=== PATIENT | male | born 1990 | race Caucasian/White ===

== ENCOUNTER → 2016-07-16 | Outpatient (CLI) | payer OTHER | END | disposition home or self-care (01) | LOC: C.RDSM 09:24 | PROVIDERS: ATTEND Physical Medicine & Rehabilitation | DX: S16.1XXA Strain of muscle, fascia and tendon at neck level, initial encounter (principal); X58.XXXA Exposure to other specified factors, initial encounter ==

== ENCOUNTER 2016-08-04 17:52 | Emergency (ER) | payer OTHER ==
[~2016-08-04] VITALS: Ht 177.8 cm; Wt 82.6 kg
[2016-08-04 17:57] VITALS: TEMP 36.4; Ht 177.8 cm; Wt 82.6 kg
[2016-08-04] MEDS ORDERED: SODIUM CHLORIDE 0.9% 1000ML 1,000 ML IV STA (18:06)
[2016-08-04] MEDS ORDERED: HYDROmorphone INJ 1 MG/ML SYR IV STA (18:06)
--- NOTE | 2016-08-04 18:06 | EMERGENCY ROOM VISIT NOTE ---
History Report prepared by Scarlet: Omari Alfred Under the Supervision of: Dr. Shady Dumont M.D. First contact with patient: 17:55 Chief Complaint: RIB PAIN Stated Complaint: RIB PAIN, CANT BREATHE History of Present Illness The patient is a 25 year old male who presents to the Emergency Room with complaints of persistent rib pain that started prior to arrival. The patient was playing lacrosse when he got hit with a stick on the left side. The patient complains of discomfort and trouble breathing. Source of History: patient Onset: prior to arrival Position: other (left rib) Timing: other (persistent) Associated Symptoms: + SOB (difficulty breathing) Review of Systems See HPI for pertinent positives & negatives. A total of 10 systems reviewed and were otherwise negative. Past Medical & Surgical Medical Problems: (1) No pertinent past medical history Family History Patient reports no known family medical history. Social History Smoking Status: Never Smoker Housing Status: lives with roommate Occupation Status: student Physical Exam Vital Signs Date Time Temp Pulse Resp B/P Pulse Ox O2 Delivery O2 Flow Rate FiO2 08/04/16 19:35 54 18 116/56 98 08/04/16 17:57 36.4 59 16 112/79 100 Room Air Physical Exam GENERAL: Patient is moderate distress and uncomfortable appearing. HEENT: No acute trauma, normocephalic atraumatic, mucous membranes moist, no nasal congestion, no scleral icterus. NECK: No stridor, no adenopathy, no meningismus, trachea is midline. LUNGS: No dyspnea. Clear to auscultation and equal bilaterally. No wheeze, no rhonchi. HEART: Regular rate and rhythm. No murmurs, rubs, gallops appreciated. ABDOMEN: Soft, significant LUQ ttp over left lower ribs, bowel sounds positive, no masses appreciated, no peritonitis. BACK: No midline tenderness, no CVA tenderness EXTREMITIES: Normal motion all extremities, no cyanosis, no edema. NEUROLOGIC: Alert and oriented, no acute motor or sensory deficits, no focal weakness, cranial nerves grossly intact. SKIN: No rash, no jaundice, no diaphoresis. Medical Decision & Procedures ER Provider Diagnostic Interpretation: X ray results and stated below per my interpretation and radiologist interpretation. Other radiology results and stated below per my review and radiologist interpretation: CHEST ONE VIEW PORTABLE HISTORY: left chest trauma COMPARISON: None. FINDINGS: The lungs are clear. Cardiac silhouette is normal in size. No pleural effusions. No pneumothorax. IMPRESSION: No acute process. Electronically signed by: Darrin Blanchard M.D. 08/04/2016 6:22 PM Dictated Date/Time: 08/04/2016 6:21 PM ABDOMEN AND PELVIS CT WITH IV CONTRAST CT DOSE: 313.80 mGy.cm HISTORY: Left upper abdominal trauma with pain. TECHNIQUE: Multiaxial CT images of the abdomen and pelvis were performed following the use of intravenous contrast. COMPARISON STUDY: None. FINDINGS: The lung bases are clear. The liver, spleen, gallbladder, pancreas, kidneys, and adrenal glands are within normal limits. No bowel wall thickening or obstruction. Normal bladder. No fractures within the venous sinus osseous structures. IMPRESSION: No significant abnormality identified within the abdomen or pelvis. Electronically signed by: Darrin Blanchard M.D. 08/04/2016 6:52 PM Dictated Date/Time: 08/04/2016 6:46 PM Laboratory Results 08/04/16 18:10 Red Blood Count 4.95, Mean Corpuscular Volume 87.1, Mean Corpuscular Hemoglobin 29.7, Mean Corpuscular Hemoglobin Concent 34.1, Mean Platelet Volume 9.3, Neutrophils (%) (Auto) 72.1, Lymphocytes (%) (Auto) 21.1, Monocytes (%) (Auto) 5.0, Eosinophils (%) (Auto) 1.4, Basophils (%) (Auto) 0.2, Neutrophils # (Auto) 9.03, Lymphocytes # (Auto) 2.64, Monocytes # (Auto) 0.62, Eosinophils # (Auto) 0.17, Basophils # (Auto) 0.02 08/04/16 18:10 Test 08/04/16 18:10 08/04/16 18:14 White Blood Count 12.51 K/uL (4.8-10.8) Red Blood Count 4.95 M/uL (4.7-6.1) Hemoglobin 14.7 g/dL (14.0-18.0) Hematocrit 43.1 % (42-52) Mean Corpuscular Volume 87.1 fL (80-100) Mean Corpuscular Hemoglobin 29.7 pg (25-34) Mean Corpuscular Hemoglobin Concent 34.1 g/dl (32-36) Platelet Count 315 K/uL (130-400) Mean Platelet Volume 9.3 fL (7.4-10.4) Neutrophils (%) (Auto) 72.1 % Lymphocytes (%) (Auto) 21.1 % Monocytes (%) (Auto) 5.0 % Eosinophils (%) (Auto) 1.4 % Basophils (%) (Auto) 0.2 % Neutrophils # (Auto) 9.03 K/uL (1.4-6.5) Lymphocytes # (Auto) 2.64 K/uL (1.2-3.4) Monocytes # (Auto) 0.62 K/uL (0.11-0.59) Eosinophils # (Auto) 0.17 K/uL (0-0.5) Basophils # (Auto) 0.02 K/uL (0-0.2) RDW Standard Deviation 37.1 fL (36.4-46.3) RDW Coefficient of Variation 11.7 % (11.5-14.5) Immature Granulocyte % (Auto) 0.2 % Immature Granulocyte # (Auto) 0.03 K/uL (0.00-0.02) Anion Gap 9.0 mmol/L (3-11) Est Creatinine Clear Calc Drug Dose 107.8 ml/min Estimated GFR () 109.1 Estimated GFR (Non- 94.1 BUN/Creatinine Ratio 22.1 (10-20) Calcium Level 9.0 mg/dl (8.5-10.1) Total Bilirubin 0.5 mg/dl (0.2-1) Aspartate Amino Transf (AST/SGOT) 26 U/L (15-37) Alanine Aminotransferase (ALT/SGPT) 28 U/L (12-78) Alkaline Phosphatase 103 U/L (45-117) Total Protein 7.5 gm/dl (6.4-8.2) Albumin 4.4 gm/dl (3.4-5.0) Globulin 3.1 gm/dl (2.5-4.0) Albumin/Globulin Ratio 1.4 (0.9-2) Lipase 134 U/L (73-393) Urine Color YELLOW Urine Appearance CLEAR (CLEAR) Urine pH 5.0 (4.5-7.5) Urine Specific [place] 1.011 (1.000-1.030) Urine Protein NEG (NEG) Urine Glucose (UA) NEG (NEG) Urine Ketones NEG (NEG) Urine Occult Blood NEG (NEG) Urine Nitrite NEG (NEG) Urine Bilirubin NEG (NEG) Urine Urobilinogen NEG (NEG) Urine Leukocyte Esterase NEG (NEG) Urine WBC (Auto) 0 /hpf (0-5) Urine RBC (Auto) 0-4 /hpf (0-4) Urine Hyaline Casts (Auto) 0 /lpf (0-5) Urine Epithelial Cells (Auto) 0-5 /lpf (0-5) Urine Bacteria (Auto) NEG (NEG) Laboratory results as reviewed by me. Medications Administered Medications (Trade) Dose Ordered Sig/Sisi Route Start Time Stop Time Status Last Admin Dose Admin Sodium Chloride (Nss 1000ml) 1,000 ml @ 999 mls/hr Q1H1M STAT IV 08/04/16 18:06 08/04/16 19:06 DC 08/04/16 18:19 999 MLS/HR Hydromorphone HCl (Dilaudid Inj) 1 mg NOW STAT IV 08/04/16 18:06 08/04/16 18:07 DC 08/04/16 18:18 1 MG Oxycodone HCl (Roxicodone Immediate Rel 5MG Home Pack) 1 homepack UD ONCE PO 08/04/16 19:15 08/04/16 19:16 DC 08/04/16 19:31 1 HOMEPACK ED Course 1801: The patient was evaluated in room C2. A complete history and physical exam was performed. 1803: At this time, bedside ultrasound was negative for free fluid in the abdomen. the lung exam was normal. 1806: Ordered Dilaudid Inj 1 mg IV, NSS 1000 ml @ 999 mls/hr IV. 1823: At this time, I reevaluated the patient and he is feeling better. He is getting prepped to go over to CAT scan. 183: Ordered Ioversol 125 ml IV/ interaction checking. 1914: Ordered Oxycodone HCl 1 homepack PO. 0: Reevaluated the patient. Discussed results and discharge instructions: He verbalized understanding and agreement. The patient is ready for discharge. Medical Decision Differential diagnoses include intraabdominal laceration, rib fracture, pneumothorax, or rib contusion. 25yr old male sent over by team physician for evaluation of injury to LUQ. TTP over ribs and quite uncomfortable. Bedside FAST without bleed and US lungs look OK. CXR without pneumo. Sent to CT given severity of pain and fortunately without any evidence of trauma. Labs look ok. No blood in urine. Given fluids and pain meds with improvement. Discussed return to play and need to be evaluated by team physician prior to return though currently without evidence of fracture. Post rib contusion instructions reviewed with patient. Discussed restrictions on oxy ir. Impression Primary Impression: Contusion of rib on left side Scribe Attestation The scribe's documentation has been prepared under my direction and personally reviewed by me in its entirety. I confirm that the note above accurately reflects all work, treatment, procedures, and medical decision making performed by me. Departure Information Dispostion Home / Self-Care Referrals No Doctor, Assigned (PCP) Forms HOME CARE DOCUMENTATION FORM, IMPORTANT VISIT INFORMATION, WORK / SCHOOL INSTRUCTIONS Patient Instructions ED Contusion Rib, [facility] Additional Instructions You have received a narcotic pain medication. These medications may cause drowsiness and should not be used with other sedative medications. Do not drive , drink alcohol, perform dangerous activities, nor make important decisions after taking these medications. skilled nursing use or inappropriate use may lead to addiction. Problem Qualifiers Primary Impression: Contusion of rib on left side Encounter type: initial encounter Qualified Codes: S20.212A - Contusion of left front wall of thorax, initial encounter
[2016-08-04 18:19] LABS: BASO % 0.2 %; BASO ABS # 0.02 K/uL (0-0.2); COMPLETE YES; EOS % 1.4 %; HEMATOCRIT 43.1 % (42-52); IG% 0.2 %; LYMPH % 21.1 %; LYMPH ABS # 2.64 K/uL (1.2-3.4); MEAN CELL VOLUME 87.1 fL (80-100); MEAN CORPUSCULAR HEMOGLOBIN 29.7 pg (25-34); MEAN CORPUSCULAR HGB CONC 34.1 g/dl (32-36); MEAN PLATELET VOLUME 9.3 fL (7.4-10.4); NEUT % 72.1 %; PLATELET COUNT 315 K/uL (130-400); RED BLOOD COUNT 4.95 M/uL (4.7-6.1); WHITE BLOOD COUNT 12.51 K/uL (4.8-10.8)
--- NOTE | 2016-08-04 18:23 | DIAGNOSTIC IMAGING REPORT ---
CHEST ONE VIEW PORTABLE HISTORY: left chest trauma COMPARISON: None. FINDINGS: The lungs are clear. Cardiac silhouette is normal in size. No pleural effusions. No pneumothorax. IMPRESSION: No acute process. Electronically signed by: Darrin Blanchard M.D. 08/04/2016 6:22 PM Dictated Date/Time: 08/04/2016 6:21 PM
[2016-08-04] MEDS ORDERED: OPTIRAY 320 IV PRN (18:30)
[2016-08-04 18:35] LABS: BUN/CREATININE RATIO 22.1 (10-20); CREATININE 1.1 mg/dl (0.60-1.40); POTASSIUM 4.5 mmol/L (3.5-5.1)
[2016-08-04 18:38] LABS: ALB/GLOB RATIO 1.4 (0.9-2)
[2016-08-04 18:40] LABS: URINE APPEARANCE CLEAR (CLEAR); URINE BILIRUBIN NEG (NEG); URINE COLOR YELLOW; URINE EPITHELIAL CELL AUTO 0-5 /lpf (0-5); URINE NITRITE NEG (NEG); URINE SPECIFIC GRAVITY 1.011 (1.000-1.030); UROBILINOGEN NEG (NEG); ZZUR CULT IF INDIC CLEAN CATCH NO
[2016-08-04 18:44] LABS: MANUAL MICROSCOPIC REQUIRED? NO; REVIEW REQ? NO
--- NOTE | 2016-08-04 18:53 | DIAGNOSTIC IMAGING REPORT ---
ABDOMEN AND PELVIS CT WITH IV CONTRAST CT DOSE: 313.80 mGy.cm HISTORY: Left upper abdominal trauma with pain. TECHNIQUE: Multiaxial CT images of the abdomen and pelvis were performed following the use of intravenous contrast. COMPARISON STUDY: None. FINDINGS: The lung bases are clear. The liver, spleen, gallbladder, pancreas, kidneys, and adrenal glands are within normal limits. No bowel wall thickening or obstruction. Normal bladder. No fractures within the venous sinus osseous structures. IMPRESSION: No significant abnormality identified within the abdomen or pelvis. Electronically signed by: Darrin Blanchard M.D. 08/04/2016 6:52 PM Dictated Date/Time: 08/04/2016 6:46 PM
[2016-08-04] MEDS ORDERED: OXYCODONE IR HOME PACK PO ONE (19:15)
[2016-08-04 19:35] VITALS: BP 116/56; PULSE 54; O2SAT 98
== END 2016-08-04 19:35 | disposition home or self-care (01) ==
LOC: C.EDB 17:56 → C.EDC 19:35
DX: S20.212A Contusion of left front wall of thorax, initial encounter (principal); W21.89XA Striking against or struck by other sports equipment, initial encounter